=== PATIENT | male | born 1960 | race Caucasian/White ===

== ENCOUNTER 2018-05-16 09:32 | Inpatient (IN) | payer OTHER ==
[2018-05-16] VITALS (21 sets, daily range): BP systolic 101–128; BP diastolic 59–78; PULSE 66–89; RESP 15–24; Ht 190.5 cm; Wt 97.0 kg
[~2018-05-16] VITALS: Ht 190.5 cm; Wt 97.0 kg
[~2018-05-16 09:32] MED LIST: CEFAZOLIN 1 GM INJ ONE; LIDOCAINE 2% (SDV) 5 ML INJ ONE; SEVOFLURANE 15 MIN ONE
[2018-05-16] MEDS ORDERED: LACTATED RINGER'S 1,000 ML IV* SCH (11:30)
[2018-05-16] MEDS ORDERED: CEFAZOLIN 2 GM/50 ML (PMX) 50 ML IVPB SCH (11:30)
[2018-05-16] MEDS ORDERED: THROMBIN (BOVINE) 5,000 UNIT VIAL TP ONE ×2 (11:49→13:37)
[2018-05-16] MEDS ORDERED: POLYMYXIN/BACITRACIN 1L IRRIG ONE (11:49)
[2018-05-16] MEDS ORDERED: SURGIFOAM POWDER 1 GM KIT ONE (11:49)
[2018-05-16] MEDS ORDERED: BUPIVACAINE 0.5%/EPI (SDV) 30 ML INJ ONE (11:49)
[2018-05-16] MEDS ORDERED: HEPARIN 1000 UNITS/ML 10 ML INJ ONE (11:49)
--- NOTE | 2018-05-16 11:59 | PREAC ---
Date/Time of Note Date/Time of Note DATE: 05/16/18 TIME: 11:53 Anesthesia Eval and Record Evaluation Time Pre-Procedure Interview DATE: 05/16/18 TIME: 11:53 Age 57 Sex male NPO: 8 hrs Preoperative diagnosis lumbar spine stenosis Planned procedure L4-L5 decompression & microdiscectomy, L L4-5 extraforaminal microdiscectomy, L L5-S1 decompression and poss microdiscectomy Past Medical History Past Medical History: Includes (chronic back pain) Surgery & Anesthesia Issues No known issue (had surgery on L ankle & leg, multiple epidural injections) Meds Anticoagulation: No Beta Mary Jane within 24 hr: No Reason Beta Mary Jane not given: Pt. not on B-Mary Jane No Active Prescriptions or Reported Meds Current Medications Cefazolin Sodium/ Dextrose 50 ml @ 100 mls/hr PREOP IVPB ; Start 05/16/18 at 11:30; Stop 05/16/18 at 17:00 Lactated Ringer's 1,000 ml @ 20 mls/hr Q24H IV* ; Start 05/16/18 at 11:30; Stop 05/18/18 at 13:29 Meds reviewed: Yes Allergies Coded Allergies: No Known Allergy (Unverified , 05/16/18) Allergies Reviewed: Yes Labs/Studies Labs Reviewed: Reviewed by anesthesiologist test: N/A Studies: ECG (1st deg AVB, probable inferior infarct, abnl ECG), CXR (normal) Pre-procedure Exam Last vitals Vital Signs Date Temp Pulse Resp B/P (MAP) Pulse Ox O2 O2 Flow FiO2 Time Delivery Rate 05/16/18 98.9 67 16 101/65 99 Room Air 10:20 (77) Airway: Adequate mouth opening, Adequate thyromental dist Mallampati: Mallampati II Teeth: Normal Lung: Normal Heart: Normal ASA Physical Status ASA physical status: 1 Emergency: None Planned Anesthetic General/MAC: ETT Pre-operative Attestations Prior to commencing anesthesia and surgery, the patient was re-evaluated, there was verification of: *The patient's identity *The results of appropriate recent lab work and preoperative vital signs *The above evaluation not changing prior to induction *Anesthetic plan, risk benefits, alternative and complications discussed with patient/family; questions answered; patient/family understands, accepts and wishes to proceed. JESUS CRAIG May 16, 2018 11:59
--- NOTE | 2018-05-16 12:23 | HPN ---
Date/Time of Note Date/Time of Note DATE: 05/16/18 TIME: 12:23 Interval H&P Admission Note Pt. seen H&P reviewed: No system changes TERESA RICHARDS PA-C May 16, 2018 12:23
[2018-05-16] MEDS ORDERED: LABETALOL HCL 20MG INJ IV PRN (12:30)
[2018-05-16] MEDS ORDERED: DIPHENHYDRAMINE 50 MG INJ IV PRN ×2 (12:30→15:00)
[2018-05-16] MEDS ORDERED: MEPERIDINE 25 MG INJ IV PRN (12:30)
[2018-05-16] MEDS ORDERED: hydrALAzine 20 MG INJ IV PRN (12:30)
[2018-05-16] MEDS ORDERED: PROCHLORPERAZINE 10 MG INJ IV PRN (12:30)
[2018-05-16] MEDS ORDERED: HYDROmorphONE 1 MG/5 ML IV SYRINGE IV PRN ×3 (12:30)
[2018-05-16] MEDS ORDERED: FENTAnyl 50 MCG/ML VIAL IV PRN ×2 (12:30)
[2018-05-16] MEDS ORDERED: EPHEDrine SULFATE 50 MG/5 ML SYG IV PRN (12:30)
[2018-05-16] MEDS ORDERED: OXYCODONE/ACETAMINOPHEN (5/325) TAB PO PRN (12:30)
[2018-05-16] MEDS ORDERED: ONDANSETRON 4 MG INJ IV PRN ×2 (12:30→15:00)
[2018-05-16] MEDS ORDERED: MIDAZOLAM 1 MG/ML 2 ML INJ ONE (12:33)
[2018-05-16] MEDS ORDERED: FENTAnyl 50 MCG/ML VIAL ONE (12:33)
[2018-05-16] MEDS ORDERED: LIDOCAINE 2% (SDV) 5 ML INJ ONE (12:51)
[2018-05-16] MEDS ORDERED: PROPOFOL 40 ML ONE (12:51)
[2018-05-16] MEDS ORDERED: ONDANSETRON 4 MG INJ ONE (12:51)
[2018-05-16] MEDS ORDERED: DEXAMETHASONE 4 MG/ML 5 ML INJ ONE (12:51)
[2018-05-16] MEDS ORDERED: SUCCINYLCHOLINE CHLORIDE 100 MG/5 ML SYG IV ONE (12:51)
[2018-05-16] MEDS ORDERED: ROCURONIUM 50 MG INJ ONE (12:51)
[2018-05-16] MEDS ORDERED: FAMOTIDINE 20 MG INJ ONE (12:51)
[2018-05-16] MEDS ORDERED: CA CHLORIDE (GM) 10% 10 ML INJ ONE (13:37)
[2018-05-16] MEDS ORDERED: HYDROmorphONE 2 MG/ML SYG ONE (14:16)
[2018-05-16] MEDS ORDERED: BUPIVACAINE 0.25% (MPF) 30 ML INJ ONE (14:19)
[2018-05-16] MEDS ORDERED: GLYCOPYRROLATE 0.4 MG INJ ONE (14:23)
[2018-05-16] MEDS ORDERED: NEOSTIGMINE 10 MG INJ ONE (14:23)
--- NOTE | 2018-05-16 14:53 | PAC ---
Date/Time of Note Date/Time of Note DATE: 05/16/18 TIME: 14:52 Post-Anesthesia Notes Post-Anesthesia Note Last documented vital signs Vital Signs Date Temp Pulse Resp B/P (MAP) Pulse Ox O2 O2 Flow FiO2 Time Delivery Rate 05/16/18 98.9 67 16 101/65 99 Room Air 10:20 (77) Activity: WNL Respiratory function: WNL Cardiovascular function: WNL Mental status: Baseline Pain reasonably controlled: Yes Hydration appropriate: Yes Nausea/Vomiting absent: Yes Comments BP: 115/68 HR: 74 RR: 14 T: 98.3 SaO2: 99% GALO CHAUDHARY MD May 16, 2018 14:53
[2018-05-16] MEDS ORDERED: HYDROCODONE/APAP (10/325) TAB PO PRN (15:00)
[2018-05-16] MEDS ORDERED: NALOXONE (0.4 MG/ML) INJ IV PRN (15:00)
[2018-05-16] MEDS ORDERED: CEPASTAT LOZENGE MT PRN (15:00)
[2018-05-16] MEDS ORDERED: BISACODYL 10 MG SUPP PR PRN (15:00)
[2018-05-16] MEDS ORDERED: MAGNESIUM HYDROXIDE 30ML CUP PO PRN (15:00)
[2018-05-16] MEDS ORDERED: ACETAMINOPHEN 325 MG TAB PO PRN (15:00)
[2018-05-16] MEDS ORDERED: CYCLOBENZAPRINE 10 MG TAB PO PRN (15:00)
[2018-05-16] MEDS: FENTAnyl 50 MCG/ML VIAL IV PRN ×2 (15:00→15:10)
[2018-05-16] MEDS ORDERED: DIPHENHYDRAMINE 25 MG CAP PO PRN (15:00)
[2018-05-16] MEDS ORDERED: HYDROmorphONE 0.5 MG/0.5 ML SYG IV PRN (15:00)
--- NOTE | 2018-05-16 15:30 | OPR ---
DATE OF OPERATION: 05/16/2018 PREOPERATIVE DIAGNOSES: 1. Left L4 to L5 extraforaminal disk herniation. 2. Left L5 to S1 stenosis. 3. Left lumbar radiculopathy. POSTOPERATIVE DIAGNOSES: 1. Left L4 to L5 extraforaminal disk herniation. 2. Left L5 to S1 stenosis. 3. Left lumbar radiculopathy. PROCEDURES: 1. Left L4 to L5 hemilaminotomy, partial medial facetectomy and foraminotomy with left L4 to L5 extr aforaminal lumbar microdiskectomy. 2. Left L5 to S1 decompression with decompression of L5 and S1 nerve roots for stenosis. 3. Lateral localizing film x2. 4. Intraoperative neuromonitoring. 5. Use of operative microscope. PRIMARY SURGEON: Jean Man MD FILTER CHANGER: Caitlin Cote PA-C NEED FOR STRAP CUTTING MACHINE OPERATOR: During this spinal surgical procedure, my assistant inventory manager was used to retract and protect the spinal nerves and dural sac. My assistant inventory manager also employed the suction catheters to ev acuate blood from the surgical field to improve visualization of the neural structures. The assistan t was medically necessary to facilitate the completion of the surgery in a safe and expeditious [facility]. [facility] regulations, as well as hospital bylaws, preclude the use of non-licensed [facility] personnel, such as operating room technicians, to perform these functions. FINDINGS: At the start of the case, intraoperative neuromonitoring revealed left L3 amplitude down 1 0%, bilateral L4 down 50%, left L5 down 50%, right L5 down 20%, left S1 down 60%, right S1 down 20%. At the end of the case, nerve signals returned to normal. ESTIMATED BLOOD LOSS: 40 mL. DRAINS: None. SPECIMENS: L4 to L5 disk. COMPLICATIONS OF PROCEDURES: None. ANESTHESIOLOGIST: Faye Boone MD TYPE OF ANESTHESIA: General. INDICATIONS FOR PROCEDURE: This is a 57-year-old gentleman with left lumbar radiculopathy in setting of pathology of both L4 to L5 and L5 to S1. He failed nonoperative measures; therefore I recommende d that he undergo the above procedure. Preoperatively, we discussed risks, benefits and alternatives . He understood and wished to proceed. DESCRIPTION OF PROCEDURE IN DETAIL: The patient was identified in the preoperative holding area, giv en Ancef antibiotics, taken to the operating room, where he was successfully placed under general ane sthesia. Neuromonitoring were placed. Sequential devices were applied. Remote intraoperative remin ds was performed by Dr. Wheat from 11:07 until 14:14 to include SSEP, MEP and EMG performed by [facility]. The patient was placed on the operative table in prone position over a Darshan frame. All bony prominences were well padded. The back was then prepped and draped in usual sterile fashi on. I placed bent spinal needle and took lateral film to identify the correct level. Once this was confirmed, I injected Marcaine and epinephrine. Incision was then made over the L4 to L5 and L5 to S 1 levels. Incision was taken down to dorsal fascia which was incised with Bovie cautery. I then sub periosteally dissected the left L4 and L5 lamina. [place] retractor was placed. Kerr[place] was placed under the lamina and lateral films were obtained to confirm the correct levels. Once this was confir med, microscope was brought in. Left-sided hemilaminotomy, partial medial facetectomy and foraminoto my was performed at the L5 to S1 level. Ligamentum flavum was then sharply dissected. I then decomp ressed the canal and the left L5 and S1 nerve roots to decompress these nerves for stenosis. I looke d at the annulus and there was no evidence of disk herniation. I then turned my attention to the L4 to L5 level. Hemilaminotomy, partial medial facetectomy and foraminotomy were then performed. My as sistant retracted neural elements medially. There is a paracentral protrusion as well as a far later al extrusion. I made an annulotomy and performed an extraforaminal lumbar diskectomy at the L4 to L5 level. Once this was done, all the nerve signals returned to normal. I irrigated the disk space an d the wound. Valsalva maneuver was performed and there was no leak of CSF. Hemostasis was achieved. PPP and thrombin was then injected and retractors were removed. I then closed the fascia with #1 V icryl stitch. I closed subcutaneous tissue with a 2-0 Vicryl stitch. Plain Marcaine was injected. A 4-0 Monocryl closure was then performed. Dermabond and sterile dressing were then applied. The pa tient was then awakened from anesthesia and taken to recovery room in stable condition. Lap, sponge and instrument counts were correct x2. There were no apparent complications during the procedure. The patient will be admitted to the orthopedic [facility] for routine postoperative care to include pain co ntrol, neurovascular checks, antibiotics and physical therapy. Dictated By: JEAN MAN MD BB/NTS Conf#: [id number] DID#: [id number] CC: ELIZABETH KERR MD;*EndCC*
[2018-05-16] MEDS: CEFAZOLIN 1 GM/50 ML (PMX) 50 ML IVPB SCH (16:54)
[2018-05-16] MEDS: D5W-0.45 NACL + KCL 20 MEQ 1,000 ML IV SCH (16:54)
--- NOTE | 2018-05-16 17:52 | CONS ---
Assessment/Plan Assessment/Plan Assessment/Plan (Daily) Post op med consult dictated Doing well post op with remote hx dm and hbp, resolved with weight loss and no cad, will follow Consultation Date/Type/Reason Admit Date/Time May 16, 2018 at 09:32 Date/Time of Note DATE: 05/16/18 TIME: 17:51 Past Medical History Home Meds No Active Prescriptions or Reported Meds Medications Current Medications Lactated Ringer's 1,000 ml @ 20 mls/hr Q24H IV* ; Start 05/16/18 at 11:30; Stop 05/18/18 at 13:29 Hydromorphone HCl (Dilaudid) 0.2 mg PACU PRN IV MILD PAIN 1-3; Start 05/16/18 at 12:30; Stop 05/16/18 at 19:00 Hydromorphone HCl (Dilaudid) 0.4 mg PACU PRN IV MOD PAIN 4-6; Start 05/16/18 at 12:30; Stop 05/16/18 at 19:00 Hydromorphone HCl (Dilaudid) 0.6 mg PACU PRN IV SEVERE PAIN 7-10; Start 05/16/18 at 12:30; Stop 05/16/18 at 19:00 Fentanyl (Sublimaze) 25 mcg PACU ORDER PRN IV MILD PAIN 1-3; Start 05/16/18 at 12:30; Stop 05/16/18 at 19:00 Fentanyl (Sublimaze) 50 mcg PACU ORDER PRN IV MOD PAIN 4-6 Last administered on 05/16/18at 15:10; Admin Dose 50 MCG; Start 05/16/18 at 12:30; Stop 05/16/18 at 19:00 Fentanyl (Sublimaze) 75 mcg PACU ORDER PRN IV SEVERE PAIN 7-10; Start 05/16/18 at 12:30; Stop 05/16/18 at 19:00 Oxycodone/ Acetaminophen (Percocet (5/ 325)) 1 tab PACU ORDER PRN PO .PAIN 1-5; Start 05/16/18 at 12:30; Stop 05/16/18 at 19:00 Ondansetron HCl (Zofran Inj) 4 mg PACU ORDER PRN IV NAUSEA/VOMITING Last administered on 05/16/18at 15:00; Admin Dose 4 MG; Start 05/16/18 at 12:30; Stop 05/16/18 at 19:00 Prochlorperazine (Compazine Inj) 5 mg PACU ORDER PRN IV NAUSEA/VOMITING; Start 05/16/18 at 12:30; Stop 05/16/18 at 19:00 Labetalol HCl (Labetalol) 5 mg PACU ORDER PRN IV HIGH BLOOD PRESSURE; Start 05/16/18 at 12:30; Stop 05/16/18 at 19:00 Hydralazine HCl (Apresoline) 5 mg PACU ORDER PRN IV HIGH BLOOD PRESSURE; Start 05/16/18 at 12:30; Stop 05/16/18 at 19:00 Ephedrine Sulfate 5 mg PACU ORDER PRN IV BLOOD PRESSURE SUPPORT; Start 05/16/18 at 12:30; Stop 05/16/18 at 19:00 Meperidine HCl (Demerol) 25 mg PACU ORDER PRN IV .RIGORS; Start 05/16/18 at 12:30; Stop 05/16/18 at 19:00 Diphenhydramine HCl (Benadryl) 25 mg PACU ORDER PRN IV .PRURITUS; Start 05/16/18 at 12:30; Stop 05/16/18 at 19:00 Potassium Chloride/Dextrose/ Sod Cl 1,000 ml @ 100 mls/hr Q10H IV Last administered on 05/16/18at 16:54; Admin Dose 100 MLS/HR; Start 05/16/18 at 14:42 Acetaminophen/ Hydrocodone Bitart ([place] (10/325)) 1 tab Q4H PRN PO .PAIN 1-5; Start 05/16/18 at 15:00 Acetaminophen/ Hydrocodone Bitart ([place] (10/325)) 2 tab Q4H PRN PO .PAIN 6-10; Start 05/16/18 at 15:00 Hydromorphone HCl (Dilaudid) 0.2 mg Q1H PRN IV .BREAKTHROUGH PAIN; Start 05/16/18 at 15:00 Cefazolin Sodium 50 ml @ 100 mls/hr Q8H IVPB Last administered on 05/16/18at 16:54; Admin Dose 100 MLS/HR; Start 05/16/18 at 15:00; Stop 05/17/18 at 07:29 Ondansetron HCl (Zofran Inj) 4 mg Q6H PRN IV NAUSEA/VOMITING; Start 05/16/18 at 15:00 Bisacodyl (Dulcolax Supp) 10 mg DAILY PRN [place] .CONSTIPATION; Start 05/16/18 at 15:00 Docusate Sodium (Colace) 100 mg BID PO ; Start 05/16/18 at 21:00 Magnesium Hydroxide (Milk Of Mag) 30 ml HS PRN PO .CONSTIPATION/DYSPEPSIA; Start 05/16/18 at 15:00 Acetaminophen (Tylenol Tab) 650 mg Q4H PRN PO MCKEON OR TEMP GREATER THAN 101.3F; Start 05/16/18 at 15:00 Cyclobenzaprine HCl (Flexeril) 5 mg TID PRN PO .MUSCLE SPASM; Start 05/16/18 at 15:00 Phenol (Cepastat Lozenge) 1 lozenge PRN PRN [place] .SORE THROAT; Start 05/16/18 at 15:00 Diphenhydramine HCl (Benadryl) 25 mg Q6H PRN PO .ITCHING; Start 05/16/18 at 15:00 Diphenhydramine HCl (Benadryl) 25 mg Q6H PRN IV .ITCHING; Start 05/16/18 at 15:00 Naloxone HCl (Narcan) 0.2 mg Q2M PRN IV .RR 8 BREATHS/MIN OR LESS; Start 05/16/18 at 15:00 Allergies: Coded Allergies: No Known Allergy (Unverified , 05/16/18) Exam/Review of Systems Exam Vitals Vital Signs Date Temp Pulse Resp B/P (MAP) Pulse Ox O2 O2 Flow FiO2 Time Delivery Rate 05/16/18 98.3 72 19 112/62 97 Nasal 2.0 15:40 (79) Cannula Medications Medication Current Medications Lactated Ringer's 1,000 ml @ 20 mls/hr Q24H IV* ; Start 05/16/18 at 11:30; Stop 05/18/18 at 13:29 Hydromorphone HCl (Dilaudid) 0.2 mg PACU PRN IV MILD PAIN 1-3; Start 05/16/18 at 12:30; Stop 05/16/18 at 19:00 Hydromorphone HCl (Dilaudid) 0.4 mg PACU PRN IV MOD PAIN 4-6; Start 05/16/18 at 12:30; Stop 05/16/18 at 19:00 Hydromorphone HCl (Dilaudid) 0.6 mg PACU PRN IV SEVERE PAIN 7-10; Start 05/16/18 at 12:30; Stop 05/16/18 at 19:00 Fentanyl (Sublimaze) 25 mcg PACU ORDER PRN IV MILD PAIN 1-3; Start 05/16/18 at 12:30; Stop 05/16/18 at 19:00 Fentanyl (Sublimaze) 50 mcg PACU ORDER PRN IV MOD PAIN 4-6 Last administered on 05/16/18at 15:10; Admin Dose 50 MCG; Start 05/16/18 at 12:30; Stop 05/16/18 at 19:00 Fentanyl (Sublimaze) 75 mcg PACU ORDER PRN IV SEVERE PAIN 7-10; Start 05/16/18 at 12:30; Stop 05/16/18 at 19:00 Oxycodone/ Acetaminophen (Percocet (5/ 325)) 1 tab PACU ORDER PRN PO .PAIN 1-5; Start 05/16/18 at 12:30; Stop 05/16/18 at 19:00 Ondansetron HCl (Zofran Inj) 4 mg PACU ORDER PRN IV NAUSEA/VOMITING Last administered on 05/16/18at 15:00; Admin Dose 4 MG; Start 05/16/18 at 12:30; Stop 05/16/18 at 19:00 Prochlorperazine (Compazine Inj) 5 mg PACU ORDER PRN IV NAUSEA/VOMITING; Start 05/16/18 at 12:30; Stop 05/16/18 at 19:00 Labetalol HCl (Labetalol) 5 mg PACU ORDER PRN IV HIGH BLOOD PRESSURE; Start 05/16/18 at 12:30; Stop 05/16/18 at 19:00 Hydralazine HCl (Apresoline) 5 mg PACU ORDER PRN IV HIGH BLOOD PRESSURE; Start 05/16/18 at 12:30; Stop 05/16/18 at 19:00 Ephedrine Sulfate 5 mg PACU ORDER PRN IV BLOOD PRESSURE SUPPORT; Start 05/16/18 at 12:30; Stop 05/16/18 at 19:00 Meperidine HCl (Demerol) 25 mg PACU ORDER PRN IV .RIGORS; Start 05/16/18 at 12:30; Stop 05/16/18 at 19:00 Diphenhydramine HCl (Benadryl) 25 mg PACU ORDER PRN IV .PRURITUS; Start 05/16/18 at 12:30; Stop 05/16/18 at 19:00 Potassium Chloride/Dextrose/ Sod Cl 1,000 ml @ 100 mls/hr Q10H IV Last administered on 05/16/18at 16:54; Admin Dose 100 MLS/HR; Start 05/16/18 at 14:42 Acetaminophen/ Hydrocodone Bitart ([place] (325)) 1 tab Q4H PRN PO .PAIN 1-5; Start 05/16/18 at 15:00 Acetaminophen/ Hydrocodone Bitart ([place] (325)) 2 tab Q4H PRN PO .PAIN 6-10; Start 05/16/18 at 15:00 Hydromorphone HCl (Dilaudid) 0.2 mg Q1H PRN IV .BREAKTHROUGH PAIN; Start 05/16/18 at 15:00 Cefazolin Sodium 50 ml @ 100 mls/hr Q8H IVPB Last administered on 05/16/18at 16:54; Admin Dose 100 MLS/HR; Start 05/16/18 at 15:00; Stop 05/17/18 at 07:29 Ondansetron HCl (Zofran Inj) 4 mg Q6H PRN IV NAUSEA/VOMITING; Start 05/16/18 at 15:00 Bisacodyl (Dulcolax Supp) 10 mg DAILY PRN [place] .CONSTIPATION; Start 05/16/18 at 15:00 Docusate Sodium (Colace) 100 mg BID PO ; Start 05/16/18 at 21:00 Magnesium Hydroxide (Milk Of Mag) 30 ml HS PRN PO .CONSTIPATION/DYSPEPSIA; Start 05/16/18 at 15:00 Acetaminophen (Tylenol Tab) 650 mg Q4H PRN PO MCKEON OR TEMP GREATER THAN 101.3F; Start 05/16/18 at 15:00 Cyclobenzaprine HCl (Flexeril) 5 mg TID PRN PO .MUSCLE SPASM; Start 05/16/18 at 15:00 Phenol (Cepastat Lozenge) 1 lozenge PRN PRN [place] .SORE THROAT; Start 05/16/18 at 15:00 Diphenhydramine HCl (Benadryl) 25 mg Q6H PRN PO .ITCHING; Start 05/16/18 at 15:00 Diphenhydramine HCl (Benadryl) 25 mg Q6H PRN IV .ITCHING; Start 05/16/18 at 15:00 Naloxone HCl (Narcan) 0.2 mg Q2M PRN IV .RR 8 BREATHS/MIN OR LESS; Start 05/16/18 at 15:00 ROSALINO GOFF MD May 16, 2018 17:52
--- NOTE | 2018-05-16 18:02 | CONS ---
DATE OF ADMISSION: 05/16/2018 DATE OF CONSULTATION: 05/16/2018 Thank you very much for allowing me to evaluate the above patient who just underwent lumbar back surg layla. HISTORICAL EVENTS: As you well know, this patient has had low back pain and related left leg radicul ar pain in excess of 7 years. He was managed conservatively with epidurals, but because of continued pain, he elected to proceed with surgical intervention. Postoperatively, he is reasonably comfortab le without cough, wheezing, shortness of breath, nausea, vomiting, abdominal or chest pain. PAST MEDICAL HISTORY: 1. Hypertension and diabetes, both of these abnormalities, improved with weight loss. 2. No history of coronary artery disease. 3. He is a nonsmoker, having quit at age 50. He does not drink alcohol. He has had no peptic ulcer disease or stroke. 4. Hyperlipidemia. 5. Left ankle surgery for a fracture. ALLERGIES: NONE. FAMILY HISTORY: Includes hypertension and "cancer." MEDICATIONS: None. PHYSICAL EXAMINATION: GENERAL: [place] male, no acute distress. VITAL SIGNS: BP 122/80, pulse 70, respirations were 18. He was afebrile. EYES: Extraocular muscles were full. NOSE, MOUTH, AND THROAT: Normal. NECK: Supple. There was no jugular venous distention, thyroid enlargement or adenopathy. Carotids 2+. LUNGS: Clear. HEART: Rhythm regular, no murmur. No third or fourth sound. ABDOMEN: Nontender. Liver and spleen were not palpable. No masses or tenderness were noted. EXTREMITIES: No edema. Calves nontender. Pulses 2+. IMPRESSION: 1. Stable postop lumbar back surgery. 2. We will evaluate daily for signs and symptoms of thromboembolic disease. 3. Remote history of hypertension and diabetes, inactive. Dictated By: ROSALINO GOFF MD MR/NTS Conf#: [id number] DID#: [id number] CC: JON NASSAR MD;*End*
[2018-05-16] MEDS: HYDROCODONE/APAP (10/325) TAB PO PRN (18:11)
[2018-05-16] MEDS: DOCUSATE SODIUM 100 MG CAP PO SCH (22:19)
[2018-05-17] MEDS: CEFAZOLIN 1 GM/50 ML (PMX) 50 ML IVPB SCH ×2 (00:08→06:41)
[2018-05-17 00:21] VITALS: BP 108/62; PULSE 82; RESP 18
[2018-05-17] MEDS: D5W-0.45 NACL + KCL 20 MEQ 1,000 ML IV SCH (00:42)
[2018-05-17 04:43] VITALS: BP 110/52; PULSE 62; RESP 18
[2018-05-17] MEDS: HYDROCODONE/APAP (10/325) TAB PO PRN ×2 (06:41→10:31)
--- NOTE | 2018-05-17 07:23 | DS ---
Date/Time of Note Date/Time of Note DATE: 05/17/18 TIME: 07:22 Discharge Summary Admission/Discharge Info Admit Date/Time May 16, 2018 at 09:32 Discharge Date/Time May 17 Discharge Diagnosis Lumbar discectomy Patient Condition: Good Procedures Lumbar decompression and discectomy Hospital Course Patient was admitted to the orthopedic [facility] after undergoing a lumbar decompression and discectomy. By postoperative day 1 he was deemed stable for discharge with follow-up arranged with the undersigned Home Meds No Active Prescriptions or Reported Meds Primary Care Provider Not On Staff Doctor Pending Labs Laboratory Tests Test 05/17/18 04:30 White Blood Count 13.3 10^3/ul (4.8-10.8) Red Blood Count 4.80 10^6/ul (4.70-6.10) Hemoglobin 14.0 g/dl (14.0-18.0) Hematocrit 40.8 % (42.0-52.0) Mean Corpuscular Volume 85.0 fl (82.0-101.0) Mean Corpuscular Hemoglobin 29.2 pg (29.0-33.0) Mean Corpuscular Hemoglobin Concent 34.3 g/dl (32.0-37.0) Red Cell Distribution Width 12.1 % (11.5-14.5) Platelet Count 223 10^3/UL (140-415) Mean Platelet Volume 10.0 fl (7.4-10.4) Immature Granulocytes % 0.600 % (0.001-0.429) Neutrophils % 84.6 % (39.0-77.0) Lymphocytes % 8.9 % (15.0-51.0) Monocytes % 5.6 % (0.0-11.0) Eosinophils % 0.1 % (0.0-7.0) Basophils % 0.2 % (0.0-2.0) Nucleated Red Blood Cells % 0.0 /100WBC (0.0-0.0) Immature Granulocytes # 0.080 10^3/ul (0.0-0.031) Neutrophils # 11.3 10^3/ul (1.6-7.5) Lymphocytes # 1.2 10^3/ul (0.8-2.9) Monocytes # 0.8 10^3/ul (0.3-0.9) Eosinophils # 0.0 10^3/ul (0.0-0.5) Basophils # 0.0 10^3/ul (0.0-0.1) Nucleated Red Blood Cells # 0.0 10^3/ul (0.0-0.0) Sodium Level 139 mmol/L (135-144) Potassium Level 4.8 mmol/L (3.5-5.1) Chloride Level 101 mmol/L (97-110) Carbon Dioxide Level 27 mmol/L (21-31) Anion Gap 11 (5-13) Blood Urea Nitrogen 10 mg/dl (7-20) Creatinine 0.63 mg/dl (0.61-1.24) Est Glomerular Filtrat Rate mL/min > 60 mL/min (>60) Glucose Level 122 mg/dl (70-220) Calcium Level 9.2 mg/dl (8.4-10.2) Magnesium Level 1.7 mg/dl (1.7-2.5) JON NASSAR MD May 17, 2018 07:23
[2018-05-17 07:39] VITALS: BP 109/61; PULSE 61; RESP 18
[2018-05-17] MEDS: DOCUSATE SODIUM 100 MG CAP PO SCH (08:50)
--- NOTE | 2018-05-17 10:00 | CONS ---
Assessment/Plan Assessment/Plan Assessment/Plan (Daily) 1. Doing very well post op lumbar back surgery 2. Can dc if OK with ortho and PT Consultation Date/Type/Reason Admit Date/Time May 16, 2018 at 09:32 Initial Consult Date Date/Time of Note DATE: 05/17/18 TIME: 09:58 Detailed Summary Respiratory: No shortness of breath Cardiovascular: No chest pain, No lightheadedness Gastrointestinal: no complaints Genitourinary: no complaints Musculoskeletal: back pain (minimal without radic leg pain) Exam/Review of Systems Exam Vitals Vital Signs Date Temp Pulse Resp B/P (MAP) Pulse Ox O2 O2 Flow FiO2 Time Delivery Rate 05/17/18 98.6 61 18 109/61 97 07:39 (77) 05/16/18 Nasal 2.0 20:00 Cannula Intake and Output 05/16/18 05/16/18 05/17/18 1515:00 23:00 07:00 IntakeIntake Total 50 ml 2210 ml 1980 ml OutputOutput Total 10 ml 1400 ml BalanceBalance 50 ml 2200 ml 580 ml Neck: No jvd Respiratory: clear to auscultation Cardiovascular: regular rate and rhythm Gastrointestinal: soft Extremities: No calf tenderness, No edema Results Result Diagram: 05/17/18 0430 05/17/18 0430 Results 24hrs Laboratory Tests Test 05/17/18 04:30 05/17/18 08:13 White Blood Count 13.3 H Red Blood Count 4.80 Hemoglobin 14.0 Hematocrit 40.8 L Mean Corpuscular Volume 85.0 Mean Corpuscular Hemoglobin 29.2 Mean Corpuscular Hemoglobin Concent 34.3 Red Cell Distribution Width 12.1 Platelet Count 223 Mean Platelet Volume 10.0 Immature Granulocytes % 0.600 H Neutrophils % 84.6 H Lymphocytes % 8.9 L Monocytes % 5.6 Eosinophils % 0.1 Basophils % 0.2 Nucleated Red Blood Cells % 0.0 Immature Granulocytes # 0.080 H Neutrophils # 11.3 H Lymphocytes # 1.2 Monocytes # 0.8 Eosinophils # 0.0 Basophils # 0.0 Nucleated Red Blood Cells # 0.0 Sodium Level 139 Potassium Level 4.8 Chloride Level 101 Carbon Dioxide Level 27 Anion Gap 11 Blood Urea Nitrogen 10 Creatinine 0.63 Est Glomerular Filtrat Rate mL/min > 60 Glucose Level 122 Calcium Level 9.2 Magnesium Level 1.7 Lab Scanned Report REFERENCE LAB Medications Medication Current Medications Lactated Ringer's 1,000 ml @ 20 mls/hr Q24H IV* ; Start 05/16/18 at 11:30; Stop 05/18/18 at 13:29 Potassium Chloride/Dextrose/ Sod Cl 1,000 ml @ 100 mls/hr Q10H IV Last administered on 05/16/18at 16:54; Admin Dose 100 MLS/HR; Start 05/16/18 at 14:42 Acetaminophen/ Hydrocodone Bitart ([place] (10325)) 1 tab Q4H PRN PO .PAIN 1-5 Last administered on 05/17/18at 06:41; Admin Dose 1 TAB; Start 05/16/18 at 15:00 Acetaminophen/ Hydrocodone Bitart ([place] (10/325)) 2 tab Q4H PRN PO .PAIN 6-10; Start 05/16/18 at 15:00 Hydromorphone HCl (Dilaudid) 0.2 mg Q1H PRN IV .BREAKTHROUGH PAIN; Start 05/16/18 at 15:00 Ondansetron HCl (Zofran Inj) 4 mg Q6H PRN IV NAUSEA/VOMITING; Start 05/16/18 at 15:00 Bisacodyl (Dulcolax Supp) 10 mg DAILY PRN [place] .CONSTIPATION; Start 05/16/18 at 15:00 Docusate Sodium (Colace) 100 mg BID PO Last administered on 05/17/18at 08:50; Admin Dose 100 MG; Start 05/16/18 at 21:00 Magnesium Hydroxide (Milk Of Mag) 30 ml HS PRN PO .CONSTIPATION/DYSPEPSIA; Start 05/16/18 at 15:00 Acetaminophen (Tylenol Tab) 650 mg Q4H PRN PO MCKEON OR TEMP GREATER THAN 101.3F; Start 05/16/18 at 15:00 Cyclobenzaprine HCl (Flexeril) 5 mg TID PRN PO .MUSCLE SPASM; Start 05/16/18 at 15:00 Phenol (Cepastat Lozenge) 1 lozenge PRN PRN [place] .SORE THROAT; Start 05/16/18 at 15:00 Diphenhydramine HCl (Benadryl) 25 mg Q6H PRN PO .ITCHING; Start 05/16/18 at 15:00 Diphenhydramine HCl (Benadryl) 25 mg Q6H PRN IV .ITCHING; Start 05/16/18 at 15:00 Naloxone HCl (Narcan) 0.2 mg Q2M PRN IV .RR 8 BREATHS/MIN OR LESS; Start 05/16/18 at 15:00 ROSALINO GOFF MD May 17, 2018 10:00
== END 2018-05-17 10:46 | disposition home or self-care (01) | DRG 520 ==
LOC: REC 09:32 → MS1 15:46
PROVIDERS: ADMIT Specialist; ATTEND Specialist
PROC: 01NB0ZZ Release Lumbar Nerve, Open Approach (ICD-10-PCS; 2018-05-16)
PROC: 4A11X4G Monitoring of Peripheral Nervous Electrical Activity, Intraoperative, External Approach (ICD-10-PCS; 2018-05-16)
PROC: 0SB20ZZ Excision of Lumbar Vertebral Disc, Open Approach (ICD-10-PCS; principal; 2018-05-16 12:00)
DX: M51.16 Intervertebral disc disorders with radiculopathy, lumbar region (principal); M48.07 Spinal stenosis, lumbosacral region; E78.5 Hyperlipidemia, unspecified
CPT/HCPCS: 72020; 80048; 83735; 85025; 86999; 88304; 97110; 97116; 97161; J0690; J1100; J1170; J1644; J2250; J2405; J2710; J3010; J3480; J7120